=== PATIENT | female | born 1995 | race American Indian/Alaskan Native ===

== ENCOUNTER 2018-01-03 10:59 | Emergency (ER) | payer OTHER ==
[2018-01-03 11:35] LABS: Basophils % (Auto) 0.4 % (0.0-1.8); Eosinophils # (Auto) 0.2 K/mm3 (0.0-0.4); Eosinophils % (Auto) 2.1 % (0.0-4.3); Lymphocytes # (Auto) 2.1 K/mm3 (1.2-5.4); Lymphocytes % (Auto) 29.6 % (13.4-35.0); Mean Corpuscular HGB Conc 30 % (30-34); Monocytes # (Auto) 0.5 K/mm3 (0.0-0.8); Platelet Count 271 K/mm3 (140-440); Red Blood Count 5.88 M/mm3 (3.65-5.03)
[2018-01-03 11:37] LABS: Hematocrit 35.9 % (30.3-42.9); Mean Corpuscular Hemoglobin 18 pg (28-32); Mean Corpuscular Volume 61 fl (79-97); Red Cell Distribution Width 21.2 % (13.2-15.2)
[2018-01-03 11:38] LABS: Hemoglobin 10.8 gm/dl (10.1-14.3)
[2018-01-03 11:50] LABS: Alanine Aminotransferase 13 units/L (7-56); Albumin 4.1 g/dL (3.9-5); BUN/Creatinine Ratio 13; Blood Urea Nitrogen 9 mg/dL (7-17); Calcium 8.9 mg/dL (8.4-10.2); Hemolysis Index 2
[2018-01-03] MEDS ORDERED: ZOFRAN ODT PO ONE (12:56)
[2018-01-03] MEDS ORDERED: MOTRIN PO ONE (12:56)
--- NOTE | 2018-01-03 13:19 | Emergency Department Report ---
HPI - General Chief Complaint: Nausea/Vomiting/Diarrhea Time Seen by Provider: 01/03/18 12:34 ED Past Medical Hx - Past Medical History Previous Medical History?: Yes Hx Hypertension: Yes - Surgical History Past Surgical History?: No - Social History Smoking Status: Never Smoker Substance Use Type: Alcohol ED Review of Systems ROS: Stated complaint: N/V/D Other details as noted in HPI Constitutional: denies: fever Eyes: denies: vision change ENT: denies: throat pain Respiratory: denies: shortness of breath Cardiovascular: denies: chest pain Endocrine: denies: unexplained weight loss Gastrointestinal: denies: nausea, vomiting Genitourinary: denies: dysuria Musculoskeletal: back pain Skin: denies: rash Neurological: denies: headache, weakness, paresthesias Psychiatric: denies: depression Hematological/Lymphatic: denies: easy bleeding, easy bruising Physical Exam - Physical Exam Vital Signs: Vital Signs 01/03/18 11:03 Temperature 99 F Pulse Rate 91 H Respiratory 18 Rate Blood Pressure 155/101 O2 Sat by Pulse 96 Oximetry ED Course Vital Signs 01/03/18 11:03 Temperature 99 F Pulse Rate 91 H Respiratory 18 Rate Blood Pressure 155/101 O2 Sat by Pulse 96 Oximetry ED Medical Decision Making - Lab Data Result diagrams: 01/03/18 11:25 01/03/18 11:25 Critical care attestation.: If time is entered above; I have spent that time in minutes in the direct care of this critically ill patient, excluding procedure time. ED Disposition Condition: Stable Referrals: PRIMARY CARE, [Primary Care Provider] - 3-5 Days
--- NOTE | 2018-01-03 13:31 | Emergency Department Report ---
Chief Complaint: Nausea/Vomiting/Diarrhea Stated Complaint: N/V/D Time Seen by Provider: 01/03/18 12:34 - HPI History of Present Illness: The patient's 22-year-old female presents for evaluation of gastroenteritis- like symptoms. The patient reports 2 days of nausea, vomiting, loose watery stools, and intermittent cramping abdominal pain. The patient denies fever, chills, night sweats, hematemesis, chest pain, dyspnea, blood in the stool, dark tarry stool, dysuria, hematuria, flank pain, genital discharge, inability to pass flatus. - Exam Vital Signs: Vital Signs 01/03/18 11:03 Temperature 99 F Pulse Rate 91 H Respiratory 18 Rate Blood Pressure 155/101 O2 Sat by Pulse 96 Oximetry MSE screening note: Focused history and physical exam performed. Due to findings the following was ordered: ED Medical Decision Making - Lab Data Result diagrams: 01/03/18 11:25 01/03/18 11:25 ED Disposition for MSE Condition: Stable Referrals: PRIMARY CARE, [Primary Care Provider] - 3-5 Days
--- NOTE | 2018-01-03 13:34 | Emergency Department Report ---
Vomiting/Diarrhea - [facility] Chief Complaint: Nausea/Vomiting/Diarrhea Stated Complaint: N/V/D Time Seen by Provider: 01/03/18 12:34 Pain Severity: Mild Symptoms: Yes Watery Diarrhea, Yes Able to Tolerate Fluids, Yes Recent Unusual Foods (patient ate a lot of [place] takeout food 2 days ago), No Bloody diarrhea , No Fever, No Recent Untreated Water, No Recent use of Antibiotics, No Family w / Similar Symptoms, No Contacts w/ Similar Symptoms, No Rash, No Hematuria, No Recent URI Symptoms Other History: 22-year-old female past medical history obesity presents with complaint of intermittent nausea vomiting and loose watery stools for 2 days. Patient ED Review of Systems ROS: Stated complaint: N/V/D Other details as noted in HPI Constitutional: denies: chills, fever Eyes: denies: eye pain, eye discharge, vision change ENT: denies: ear pain, throat pain Respiratory: denies: shortness of breath, wheezing Cardiovascular: denies: chest pain, palpitations Endocrine: no symptoms reported Gastrointestinal: abdominal pain, nausea. denies: diarrhea Genitourinary: denies: urgency, dysuria, discharge Musculoskeletal: denies: back pain, joint swelling, arthralgia Skin: denies: rash, lesions Neurological: denies: headache, weakness, paresthesias Psychiatric: denies: anxiety, depression Hematological/Lymphatic: denies: easy bleeding, easy bruising ED Past Medical Hx - Past Medical History Previous Medical History?: Yes Hx Hypertension: Yes - Surgical History Past Surgical History?: No - Social History Smoking Status: Never Smoker Substance Use Type: Alcohol - Medications Home Medications: Home Medications Medication Instructions Recorded Confirmed Last Taken Type Bismuth Subsalicylate 15 mg PO QID PRN #1 bottle 01/03/18 Unknown Rx [Pepto-Bismol] Famotidine [Pepcid] 20 mg PO BID PRN #20 tablet 01/03/18 Unknown Rx Ondansetron [Zofran Odt] 4 mg PO Q8H PRN #9 tab.rapdis 01/03/18 Unknown Rx Vomiting Diarrhea Exam - Exam General: Vital signs noted. No distress. Alert and acting appropriately. HEENT: Yes Moist Mucous Membranes, No Pharyngeal Erythema, No Pharyngeal Exudates, No Rhinorrhea, No Conjuctival Injection, No Frontal Tenderness, No Maxillary Tenderness Neck: No Adenopathy, No Rigidity Lungs: Yes Clear Lung Sounds, Yes Good Air Exchange, No Wheezes, No Stridor, No Cough, No Nasal Flaring, No Retractions, No Use of Accessory Muscles Heart exam: Regular: Yes, Murmur: No, Tachycardia: No Abdomen: Tenderness: No, Peritoneal Signs: No, Distention: No, Hyperactive Bowel sounds: No Skin exam: Rash: No, Edema: No, Normal turgor: Yes Neurologic: Alert and oriented, no deficits. Musculoskeletal: Unremarkable. ED Course Vital Signs 01/03/18 11:03 Temperature 99 F Pulse Rate 91 H Respiratory 18 Rate Blood Pressure 155/101 O2 Sat by Pulse 96 Oximetry ED Medical Decision Making - Lab Data Result diagrams: 01/03/18 11:25 01/03/18 11:25 - Medical Decision Making A/P: Gastroenteritis, possible food poisoning 1-patient ate [place] takeout food which likely resulted in gastroenteritis. Patient has normal labs BMP CBC and LFTs. 2-patient states that her symptoms are slowly resolving. Is able to tolerate by mouth fluid and food without difficulty 3-vital signs stable for discharge, I discussed case with Dr. Daigle before discharge Critical care attestation.: If time is entered above; I have spent that time in minutes in the direct care of this critically ill patient, excluding procedure time. ED Disposition Clinical Impression: Gastroenteritis Nausea & vomiting Qualifiers: Vomiting type: unspecified Vomiting Intractability: non-intractable Qualified Code(s): R11.2 - Nausea with vomiting, unspecified Disposition: DC-01 TO HOME OR SELFCARE Is pt being admited?: No Does the pt Need Aspirin: No Condition: Stable Instructions: Gastroenteritis (ED), Acute Nausea and Vomiting (ED) Prescriptions: Bismuth Subsalicylate [Pepto-Bismol] 15 mg PO QID PRN #1 bottle PRN Reason: Indigestion Famotidine [Pepcid] 20 mg PO BID PRN #20 tablet PRN Reason: Indigestion Ondansetron [Zofran Odt] 4 mg PO Q8H PRN #9 tab.rapdis PRN Reason: Nausea Referrals: [facility] [Provider Group] - 3-5 Days Forms: Work/School Release Form(ED) Time of Disposition: 14:20
[2018-01-03 14:07] LABS: Bacteria,Urine 1+ /HPF (Negative); Bilirubin,Urine NEG (Negative); Blood,Urine NEG (Negative); Color,Urine Yellow (Yellow); Mucus,Urine FEW /HPF; Protein,Urine <15 mg/dL mg/dL (Negative); Urobilinogen,Urine < 2.0 mg/dL (<2.0)
[2018-01-03 14:09] LABS: HCG Qualitative,Urine Negative (Negative)
[2018-01-03 14:53] VITALS: BP 152/98
== END 2018-01-03 14:10 | disposition home or self-care (01) ==
LOC: ED 10:59
DX: K52.9 Noninfective gastroenteritis and colitis, unspecified (principal); R11.2 Nausea with vomiting, unspecified; I10 Essential (primary) hypertension
CPT/HCPCS: 36415; 80053; 81001; 81025; 85025; 99283; Q0162

== ENCOUNTER 2018-01-10 13:38 | Emergency (ER) | payer OTHER ==
[2018-01-10 14:09] VITALS: BP 156/85
--- NOTE | 2018-01-10 17:01 | Emergency Department Report ---
ED Rash HPI - [facility] Chief Complaint: Skin Rash Stated Complaint: BUG BITES Time Seen by Provider: 01/10/18 17:01 ED Review of Systems ROS: Stated complaint: BUG BITES Other details as noted in HPI ED Past Medical Hx - Past Medical History Hx Hypertension: Yes - Social History Smoking Status: Never Smoker Substance Use Type: None - Medications Home Medications: Home Medications Medication Instructions Recorded Confirmed Last Taken Type Bismuth Subsalicylate 15 mg PO QID PRN #1 bottle 01/03/18 Unknown Rx [Pepto-Bismol] Famotidine [Pepcid] 20 mg PO BID PRN #20 tablet 01/03/18 Unknown Rx Ondansetron [Zofran Odt] 4 mg PO Q8H PRN #9 tab.rapdis 01/03/18 Unknown Rx Rash Exam - Exam General: Vital signs noted. No distress. Alert and acting appropriately. ED Course Vital Signs 01/10/18 14:07 Temperature 98.5 F Pulse Rate 104 H Respiratory 18 Rate Blood Pressure 156/85 O2 Sat by Pulse 100 Oximetry Critical care attestation.: If time is entered above; I have spent that time in minutes in the direct care of this critically ill patient, excluding procedure time. ED Disposition Condition: Stable Referrals: LUZ MARIA ROBERTS MD [Primary Care Provider] - 3-5 Days
--- NOTE | 2018-01-10 17:15 | Emergency Department Report ---
ED Rash HPI - HPI Chief Complaint: Skin Rash Stated Complaint: BUG BITES Time Seen by Provider: 01/10/18 17:01 Duration: 2 Days Location: Other (patient noticed when she woke up yesterday that she has several small areas of induration with pain and itching on her right lower quadrant and the abdomen as well as the left neck and right upper extremity. None of these are greater than 3 cm in width) Rash Symptoms: Yes Itching, No Facial Swelling, No Tongue/Oral Swelling, No Breathing Difficulties, No Choking Sensation, No Wheezing/Dyspnea, No Peeling, No Blistering, No Fever, No Lightheaded, No Malaise, No Myalgias Severity: moderate ED Review of Systems ROS: Stated complaint: BUG BITES Other details as noted in HPI Comment: All other systems reviewed and negative ED Past Medical Hx - Past Medical History Hx Hypertension: Yes - Social History Smoking Status: Never Smoker Substance Use Type: None - Medications Home Medications: Home Medications Medication Instructions Recorded Confirmed Last Taken Type Bismuth Subsalicylate 15 mg PO QID PRN #1 bottle 01/03/18 Unknown Rx [Pepto-Bismol] Famotidine [Pepcid] 20 mg PO BID PRN #20 tablet 01/03/18 Unknown Rx Ondansetron [Zofran Odt] 4 mg PO Q8H PRN #9 tab.rapdis 01/03/18 Unknown Rx Sulfamethoxazole/Trimethoprim 1 each PO BID #14 tablet 01/10/18 Unknown Rx [Bactrim DS TAB] traMADol [Ultram] 50 mg PO Q6HR PRN #14 tablet 01/10/18 Unknown Rx Rash Exam - Exam General: Vital signs noted. No distress. Alert and acting appropriately. HEENT: No Periorbital Edema, No Conjuctival Injection, No Chemosis, No Perioral Edema, No Tongue Edema, No Uvular Edema, No Compromised Airway, No Drooling Lungs: Yes Good Air Exchange (Normal Breath Sounds), No Wheezes, No Ronchi, No Stridor, No Cough, No Labored Respirations, No Retractions, No Use of Accessory Muscles, No Other Abnormal Lung Sounds Heart: Yes Regular, No Murmur Skin: Yes Erythema (patient has sinus several areas of induration and mild warmth with no fluctuance in the right lower quadrant abdomen and left neck and right upper extremity) Other: Positive: Abdomen Normal, Neurologic Normal, Musculoskeletal Normal ED Course Vital Signs 01/10/18 14:07 Temperature 98.5 F Pulse Rate 104 H Respiratory 18 Rate Blood Pressure 156/85 O2 Sat by Pulse 100 Oximetry ED Medical Decision Making - Medical Decision Making Patient's lesions are most consistent with bug bites that are infected with mild cellulitis. Patient states she does not see anybody bedbugs in her bed. This is not an old mattress. Denies a suspect scabies. The patient be discharged on antibiotics. Critical care attestation.: If time is entered above; I have spent that time in minutes in the direct care of this critically ill patient, excluding procedure time. ED Disposition Clinical Impression: Cellulitis Disposition: DC-01 TO HOME OR SELFCARE Is pt being admited?: No Does the pt Need Aspirin: No Condition: Stable Instructions: Cellulitis (ED) Prescriptions: Sulfamethoxazole/Trimethoprim [Bactrim DS TAB] 1 each PO BID #14 tablet traMADol [Ultram] 50 mg PO Q6HR PRN #14 tablet PRN Reason: Pain Referrals: LUZ MARIA ROBERTS MD [Primary Care Provider] - 3-5 Days
== END 2018-01-10 17:47 | disposition home or self-care (01) ==
LOC: ED 13:38
DX: L03.221 Cellulitis of neck (principal); L03.311 Cellulitis of abdominal wall; L03.113 Cellulitis of right upper limb; I10 Essential (primary) hypertension
CPT/HCPCS: 99282

== ENCOUNTER 2018-11-19 12:53 | Emergency (ER) | payer SELFPAY ==
[2018-11-19 13:13] VITALS: BP 136/84
--- NOTE | 2018-11-19 15:12 | Emergency Department Report ---
ED Abdominal Pain HPI - General Chief Complaint: Abdominal Pain Stated Complaint: STOMACH CRAMPS/MISSED CYCLE Time Seen by Provider: 11/19/18 14:25 Source: patient Mode of arrival: Ambulatory Limitations: No Limitations - History of Present Illness Initial Comments: This is a 23-year-old female here report that her last menstrual period was 09/29/2018 and she had a negative home test and 4. She says she has lower abdominal cramping on and off. Denies any nausea or vomiting. Denies any vaginal bleeding or discharge. Denies any fever or chills. Denies any urinary burning frequency or urgency. She said her pain this morning was 5 out of 10 and she decided to come in but now she is not having any pain. She denies any concern for STDs. Patient is more worried that she missed her period and thinks she might be . MD Complaint: abdominal pain -: This morning Location: suprapubic Radiation: none Migration to: no migration Severity scale (0 -10): 5 Quality: cramping (this morning but no pain now.) Consistency: intermittent Context: other (suspect ) Associated Symptoms: denies: nausea, vomiting, diarrhea, fever, chills, constipation, dysuria, melena, hematuria Treatments Prior to Arrival: other (none) - Related Data LMP Date: 09/29/18 Previous Rx's Medication Instructions Recorded Last Taken Type Bismuth Subsalicylate 15 mg PO QID PRN #1 bottle 01/03/18 Unknown Rx [Pepto-Bismol] Famotidine [Pepcid] 20 mg PO BID PRN #20 tablet 01/03/18 Unknown Rx Ondansetron [Zofran Odt] 4 mg PO Q8H PRN #9 tab.rapdis 01/03/18 Unknown Rx Sulfamethoxazole/Trimethoprim 1 each PO BID #14 tablet 01/10/18 Unknown Rx [Bactrim DS TAB] traMADol [Ultram] 50 mg PO Q6HR PRN #14 tablet 01/10/18 Unknown Rx Allergies Allergy/AdvReac Type Severity Reaction Status Date / Time No Known Allergies Allergy Unverified 01/03/18 11:11 ED Review of Systems ROS: Stated complaint: STOMACH CRAMPS/MISSED CYCLE Other details as noted in HPI Constitutional: denies: chills, fever ENT: denies: throat pain Respiratory: denies: cough, shortness of breath, wheezing Cardiovascular: denies: chest pain, palpitations, edema, syncope Gastrointestinal: denies: abdominal pain, nausea, vomiting, diarrhea, constipation, hematemesis, melena, hematochezia Genitourinary: abnormal menses. denies: urgency, dysuria, frequency, hematuria, discharge, dyspareunia Musculoskeletal: denies: back pain, arthralgia Neurological: denies: headache, abnormal gait, vertigo ED Past Medical Hx - Past Medical History Previous Medical History?: Yes Hx Hypertension: Yes - Surgical History Past Surgical History?: No - Family History Family history: hypertension - Social History Smoking Status: Never Smoker Substance Use Type: Alcohol - Medications Home Medications: Home Medications Medication Instructions Recorded Confirmed Last Taken Type Bismuth Subsalicylate 15 mg PO QID PRN #1 bottle 01/03/18 Unknown Rx [Pepto-Bismol] Famotidine [Pepcid] 20 mg PO BID PRN #20 tablet 01/03/18 Unknown Rx Ondansetron [Zofran Odt] 4 mg PO Q8H PRN #9 tab.rapdis 01/03/18 Unknown Rx Sulfamethoxazole/Trimethoprim 1 each PO BID #14 tablet 01/10/18 Unknown Rx [Bactrim DS TAB] traMADol [Ultram] 50 mg PO Q6HR PRN #14 tablet 01/10/18 Unknown Rx ED Physical Exam - General Limitations: No Limitations General appearance: alert, in no apparent distress - Eye Eye exam: Present: normal appearance, PERRL, EOMI Pupils: Present: normal accommodation - ENT ENT exam: Present: normal exam, normal orophraynx, mucous membranes moist - Neck Neck exam: Present: normal inspection, full ROM. Absent: tenderness, lymphadenopathy - Respiratory Respiratory exam: Present: normal lung sounds bilaterally. Absent: respiratory distress, chest wall tenderness - Cardiovascular Cardiovascular Exam: Present: regular rate, normal rhythm, normal heart sounds - GI/Abdominal GI/Abdominal exam: Present: soft, normal bowel sounds. Absent: distended, tenderness, guarding, rebound, rigid, organomegaly, mass - Extremities Exam Extremities exam: Present: normal inspection, full ROM, normal capillary refill, other (No cce. + 2 pulses in all extremities, no neurovascular compromise). Absent: tenderness, pedal edema, joint swelling, calf tenderness - Back Exam Back exam: Present: normal inspection, full ROM, other (ambulates without any difficulties). Absent: CVA tenderness (R), CVA tenderness (L), muscle spasm - Neurological Exam Neurological exam: Present: alert, oriented X3, normal gait - Psychiatric Psychiatric exam: Present: normal affect, normal mood - Skin Skin exam: Present: warm, dry, intact, normal color. Absent: rash ED Course Vital Signs 11/19/18 13:10 Temperature 98.9 F Pulse Rate 92 H Respiratory 16 Rate Blood Pressure 136/84 O2 Sat by Pulse 100 Oximetry - Reevaluation(s) Reevaluation #1: 11/19/18 15:56 Patient remained pain-free throughout ED course without any episode of abdominal pain. ED Medical Decision Making - Lab Data Lab Results 11/19/18 Range/Units 15:14 Urine Color Yellow (Yellow) Urine Turbidity Clear (Clear) Urine pH 7.0 (5.0-7.0) Ur Specific [place] 1.017 (1.003-1.030) Urine Protein <15 mg/dl (Negative) mg/dL Urine Glucose (UA) Neg (Negative) mg/dL Urine Ketones Neg (Negative) mg/dL Urine Blood Neg (Negative) Urine Nitrite Neg (Negative) Urine Bilirubin Neg (Negative) Urine Urobilinogen 2.0 (<2.0) mg/dL Ur Leukocyte Esterase Neg (Negative) Urine WBC (Auto) < 1.0 (0.0-6.0) /HPF Urine RBC (Auto) 2.0 (0.0-6.0) /HPF U Epithel Cells (Auto) 5.0 (0-13.0) /HPF Urine Mucus 1+ /HPF Urine HCG, Qual Negative (Negative) - Medical Decision Making This is a 23-year-old female here reports that she took 4 tests at home and were negative but she missed her cycle for October. Patient is reporting that she thinks she is and she started having some abdominal cramping which has resolved since she has been emergency room. Physical findings for normal abdominal and back exam. Her urinalysis negative for infection and her test is negative. I discussed the patient's her examination and I discussed with her she is to follow up with [employer] regarding irregular menstrual cycle. She voiced understanding and discharged home in stable condition Critical care attestation.: If time is entered above; I have spent that time in minutes in the direct care of this critically ill patient, excluding procedure time. ED Disposition Clinical Impression: Urine test negative Oligomenorrhea, unspecified Qualifiers: Oligomenorrhea type: unspecified type Qualified Code(s): N91.5 - Oligomenorrhea, unspecified Disposition: DC- TO HOME OR SELFCARE Is pt being admited?: No Does the pt Need Aspirin: No Condition: Stable Instructions: Safe Sex (ED), Pap Smear (ED) Additional Instructions: Please follow up with [employer] in the surgeon instruction paperwork in 2-3 days to manage abnormal menstrual cycle. If her condition worsens, return to the emergency room otherwise follow-up with [employer] Referrals: GILBERTO GOFF [Staff Physician] - 2-3 Days PRIMARY CARE, [Primary Care Provider] - 2-3 Days Forms: Work/School Release Form(ED)
[2018-11-19 15:39] LABS: Bilirubin,Urine NEG (Negative); Blood,Urine NEG (Negative); Color,Urine Yellow (Yellow); Mucus,Urine 1+ /HPF; Protein,Urine <15 mg/dL mg/dL (Negative); WBC,Urine < 1.0 /HPF (0.0-6.0)
[2018-11-19 15:43] LABS: HCG Qualitative,Urine Negative (Negative)
== END 2018-11-19 16:13 | disposition home or self-care (01) ==
LOC: ED 12:53
DX: N91.5 Oligomenorrhea, unspecified (principal); I10 Essential (primary) hypertension
CPT/HCPCS: 81001; 81025

== ENCOUNTER 2019-09-24 11:12 | Emergency (ER) | payer OTHER ==
[2019-09-24 11:21] VITALS: BP 146/76
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
[2019-09-24] MEDS ORDERED: IBUPROFEN 600 MG TAB PO ONE (15:12)
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
== END 2019-09-24 16:16 | disposition home or self-care (01) ==
LOC: ED 11:12
DX: S39.012A Strain of muscle, fascia and tendon of lower back, initial encounter (principal); I10 Essential (primary) hypertension; V49.49XA Driver injured in collision with other motor vehicles in traffic accident, initial encounter; Y93.89 Activity, other specified; Y92.410 Unspecified street and highway as the place of occurrence of the external cause; Y99.8 Other external cause status
CPT/HCPCS: 72100

== ENCOUNTER 2020-09-24 10:14 | Outpatient (CLI) | payer OTHER, MEDICAID ==
[2020-09-24 12:08] LABS: Hematocrit 31.1 % (30.3-42.9); Hemoglobin 10.4 gm/dl (10.1-14.3); Mean Corpuscular HGB Conc 33 % (30-34); Mean Corpuscular Volume 71 fl (79-97); Platelet Count 193 K/mm3 (140-440); Red Blood Count 4.36 M/mm3 (3.65-5.03); Red Cell Distribution Width 18.8 % (13.2-15.2)
[2020-09-24 12:11] LABS: Bilirubin,Urine NEG (Negative); Blood,Urine NEG (Negative); Color,Urine Yellow (Yellow); Mucus,Urine 1+ /HPF; Protein,Urine <15 mg/dL mg/dL (Negative); Urobilinogen,Urine < 2.0 mg/dL (<2.0)
[2020-09-24 12:54] LABS: Alanine Aminotransferase 9 units/L (7-56); Uric Acid 4.7 mg/dL (3.5-7.6)
[2020-09-24 12:56] VITALS: BP 135/73
== END 2020-09-24 13:13 | disposition home or self-care (01) ==
LOC: TRG 10:14 → APU 10:19 → TRG 13:13
PROVIDERS: ATTEND Obstetrics & Gynecology
DX: O13.3 Gestational [pregnancy-induced] hypertension without significant proteinuria, third trimester (principal); Z3A.37 37 weeks gestation of pregnancy
CPT/HCPCS: 36415; 59025; 81001; 82565; 83615; 84450; 84460; 84550; 85027

== ENCOUNTER 2020-09-28 06:48 | Inpatient (IN) | payer OTHER, MEDICAID ==
[2020-09-28] MEDS ORDERED: LACTATED RINGERS 1,000 ML ONE ×2 (12:45→14:25)
--- NOTE | 2020-09-28 13:14 | History and Physical Report ---
History of Present Illness Date of examination: 09/28/20 Date of admission: 09/28/2020 Chief complaint: I am having contractions History of present illness: Patient is a 24-year-old 2 para 0 who presents with contractions at 38 weeks gestation. Past History Past Medical History: no pertinent history Past Surgical History: no surgical history Family/Genetic History: none Social history: no significant social history - Obstetrical History Expected Date of Delivery: 10/12/20 Actual Gestation: 38 Week(s) 0 Day(s) : 2 Para: 0 Medications and Allergies Allergies Allergy/AdvReac Type Severity Reaction Status Date / Time No Known Allergies Allergy Verified 09/28/20 12:56 Home Medications Medication Instructions Recorded Confirmed Last Taken Type Bismuth Subsalicylate 15 mg PO QID PRN #1 bottle 01/03/18 Unknown Rx [Pepto-Bismol] Famotidine [Pepcid] 20 mg PO BID PRN #20 tablet 01/03/18 Unknown Rx Ondansetron [Zofran Odt] 4 mg PO Q8H PRN #9 tab.rapdis 01/03/18 Unknown Rx Sulfamethoxazole/Trimethoprim 1 each PO BID #14 tablet 01/10/18 Unknown Rx [Bactrim DS TAB] traMADoL [Ultram] 50 mg PO Q6HR PRN #14 tablet 01/10/18 Unknown Rx Cyclobenzaprine HCl [Flexeril 5 MG 5 mg PO QHS PRN #10 tab 09/24/19 Unknown Rx TAB] Ibuprofen [Motrin 600 MG tab] 600 mg PO Q8H PRN #20 tablet 09/24/19 Unknown Rx Review of Systems All systems: negative Constitutional: fatigue Eyes: deferred Ears, nose, mouth and throat: deferred Breasts: deferred Genitourinary: leakage of fluid, contractions - Vital Signs Vital signs: Vital Signs Pulse BP Pulse Ox 85 147/65 100 09/28/20 07:27 09/28/20 07:27 09/28/20 07:27 Temp Pulse Resp BP Pulse Ox 98.4 F 94 H 18 166/83 100 09/28/20 12:54 09/28/20 12:54 09/28/20 12:54 09/28/20 12:54 09/28/20 12:54 - Physical Exam Cardiovascular: Regular rate, Normal S1, Normal S2 Lungs: Positive: Clear to auscultation, Normal air movement Abdomen: Positive: normal appearance, soft, normal bowel sounds Genitourinary (Female): Positive: normal external genitalia, normal perenium Vagina: Positive: normal moisture Uterus: Positive: normal size Extremities: Positive: normal - Obstetrical Cervical Dilatation: 6 Cervical Effacement Percentage: 100 station: -1 Uterine Contraction Pattern: Regular Uterine Tone Measurement Phase: Contraction Uterine Contraction Intensity: Moderate Results Result Diagrams: 09/28/20 12:20 All other labs normal. Assessment and Plan IUP at 38 weeks here in active labor. Admit for labor. AROm when able. Anticipate .
[2020-09-28] MEDS ORDERED: ePHEDrine SULFATE 50 MG/1 ML INJ ONE (14:21)
[2020-09-28] MEDS ORDERED: ePHEDrine SULFATE 50 MG/1 ML INJ IV PRN (14:34)
[2020-09-28] MEDS ORDERED: NALOXONE 2 MG/2 ML INJ IV PRN (14:34)
--- NOTE | 2020-09-28 14:34 | Anesthesia Consultation ---
Anesthesia Consult and Med Hx Date of service: 09/28/20 - Airway Anesthetic Teeth Evaluation: Good ROM Head & Neck: Adequate Mental/Hyoid Distance: Adequate Mallampati Class: Class II Intubation Access Assessment: Probably Good - Pulmonary Exam CTA: Yes - Cardiac Exam Cardiac Exam: RRR - Pre-Operative Health Status ASA Pre-Surgery Classification: ASA3 Proposed Anesthetic Plan: Epidural - Pulmonary Hx Asthma: Yes (has not used inhaler in years) - Cardiovascular System Hx Hypertension: Yes - Central Nervous System Hx Seizures: No Hx Psychiatric Problems: No - Endocrine Hx Renal Disease: No Hx Hypothyroidism: No Hx Hyperthyroidism: No - Hematic Hx Anemia: No Hx Sickle Cell Disease: No - Other Systems Hx Alcohol Use: Yes (social)
[2020-09-28] MEDS ORDERED: BUTORPHANOL 2 MG/1 ML INJ IV PRN (14:38)
[2020-09-28 14:48] LABS: Hematocrit 34.8 % (30.3-42.9); Hemoglobin 11.1 gm/dl (10.1-14.3); Mean Corpuscular HGB Conc 32 % (30-34); Mean Corpuscular Volume 73 fl (79-97); Platelet Count 201 K/mm3 (140-440); Red Blood Count 4.79 M/mm3 (3.65-5.03); Red Cell Distribution Width 18.7 % (13.2-15.2)
[2020-09-28] MEDS ORDERED: fentaNYL-BUPIV 2 MCG/ML-0.125% 200 MCG/100 ML BAG EPIDURAL SCH (15:00)
--- NOTE | 2020-09-28 15:45 | Progress Note ---
Labor Epidural - Labor Epidural Start Time: 15:29 Stop Time: 15:38 Performed by:: ROB ESPINOZA Procedure: Patient is requesting epidural for labor pain. H&P, and labs reviewed. Procedure explained, questions answered, consent obtained. Patient in sitting position with blood pressure cuff and pulse ox on and working. Timeout performed immediately before start of procedure. Sterile betadine prep/drape. 3 mL 1% lidocaine skin wheal at L[3]-L[4]. 18-gauge RubyRidetead epidural needle advanced to [id number] with saline at 10 cm. Epidural dexmedetomidine [30] mcg administered. Epidural catheter advanced to 15 cm, negative aspiration for blood and csf, negative test dose 3 ml 1.5% lidocaine with epinephrine. Sterile steri-strips and tegaderm applied, followed by tape reinforcement. Patient tolerated procedure well. Jacqueline WANG
[2020-09-28] MEDS ORDERED: MINERAL OIL 30 ML ORAL LIQD ONE (17:25)
[2020-09-28] MEDS ORDERED: LIDOCAINE (2%) 20 MG/1 ML VIAL 20 ML MDV INFILTRATI ONE (17:25)
[2020-09-28] MEDS ORDERED: OXYTOCIN DRIP 30,000 MILLIUNITS/500 ML BAG IV ONE ×2 (17:26→18:09)
[2020-09-28] MEDS ORDERED: FAMOTIDINE 20 MG/2 ML INJ IV ONE (18:30)
--- NOTE | 2020-09-28 20:07 | Procedure Note ---
OB Delivery Note - Delivery Date of Delivery: 09/28/20 Deputy General Counsel: SAGE CARSON (Netta Enrique [facility]) Estimated blood loss: other (150) - Vaginal Delivery presentation: vertex Delivery position: OP (direct OP) Intrapartum events: none Delivery induction: none Delivery augmentation: rupture of membranes, pitocin Delivery monitor: external FHT, external uterine Route of delivery: Delivery placenta: spontaneous (trailing membranes) Episiotomy: none Delivery laceration: none Anesthesia: epidural Delivery comments: female baby born over intact perineum, placed skin to skin on mother's abdomen. 3 vessel cord clamped and cut after cessation or pulsation. cord blood collected. Placenta del intact and complete, trailing membranes noted and teased out with ring forceps. Fundus firm, lochia scant, no laceration to repair. EBL 150, apgars 8/9, baby's wt 6#11oz. All counts correct. Mother and baby LDR stable. - Infant A at 1 minute: 8 at 5 minutes: 9 Gender: Female (Sosa, 6#11oz)
[2020-09-28] MEDS ORDERED: LANOLIN/ZINC/DIMETHICONE (LANSINOH) 7 GM TP PRN (23:18)
[2020-09-28] MEDS ORDERED: PROMETHAZINE 25 MG RECT SUPP PR PRN (23:18)
[2020-09-28] MEDS ORDERED: ONDANSETRON 4 MG/2 ML INJ IV PRN (23:18)
[2020-09-28] MEDS ORDERED: PROMETHAZINE 25 MG TAB PO PRN (23:18)
[2020-09-28] MEDS ORDERED: MAGNESIUM HYDROXIDE (MOM) ORAL LIQD UDC PO PRN (23:18)
[2020-09-28] MEDS ORDERED: WITCH HAZEL/ GLYCERIN PAD TP PRN (23:18)
[2020-09-28] MEDS ORDERED: BENZOCAINE/MENTHOL 20/0.5% TOP SPRAY 56 GM TP PRN (23:18)
[2020-09-28] MEDS ORDERED: diphenhydrAMINE 25 MG CAP PO PRN (23:18)
[2020-09-29] MEDS: PRENATAL VIT27-FE FUMARATE-FOLIC ACID VIT TAB PO SCH (10:01)
[2020-09-29] MEDS: IBUPROFEN 600 MG TAB PO SCH ×2 (10:01→16:12)
--- NOTE | 2020-09-29 10:05 | Progress Note ---
Assessment and Plan PPD 1 s/p . Doing well. Pt delivered at 2030pm and will be 24 hours post delivery at that time. Pt should plan for discharge on [place] AM Subjective - Subjective Date of service: 09/29/20 Interval history: PPD 1 s/p at term. Pt has no complaints. Patient reports: appetite normal, voiding normally, pain well controlled, flatus, ambulating normally [place]: doing well Objective - Vital Signs Latest vital signs: Vital Signs Temp Pulse Resp BP BP Pulse Ox 09/29/20 07:53 97.9 F 90 18 136/73 99 09/29/20 07:05 98.3 F 96 H 18 136/73 99 09/29/20 01:55 98.5 F 85 20 131/61 99 09/28/20 22:44 99.5 F 88 20 145/74 100 09/28/20 21:15 98.1 F 16 09/28/20 20:22 88 115/60 09/28/20 20:08 97 H 100 09/28/20 20:07 94 H 129/68 09/28/20 20:03 97 H 100 20 19:58 96 H 100 09/28/20 19:53 102 H 100 09/28/20 19:48 116 H 100 09/28/20 19:43 104 H 100 20 19:39 122 H 185/112 09/28/20 19:38 87 99 09/28/20 19:37 77 82 L 09/28/20 19:33 121 H 83 L 09/28/20 19:28 110 H 100 09/28/20 19:23 96 H 139/70 100 09/28/20 19:18 94 H 100 20 19:13 88 100 20 19:09 87 139/65 20 19:08 88 100 09/28/20 19:03 83 100 20 18:58 84 100 20 18:53 102 H 125/65 100 20 18:48 106 H 100 20 18:43 86 155/77 100 20 18:38 90 99 09/28/20 18:33 88 100 09/28/20 18:28 87 100 09/28/20 18:23 87 131/74 100 12/19/20 18:18 88 100 1219/20 18:15 18 12/19/20 18:13 88 100 1219/20 18:08 88 100 19/20 18:07 85 137/76 09/28/20 18:03 84 100 1219/20 17:58 87 100 19/20 17:53 88 100 1219/20 17:51 85 129/77 1219/20 17:48 87 100 19/20 17:43 93 H 100 19/20 17:40 86 157/70 1219/20 17:38 84 99 19/20 17:33 78 99 19/20 17:30 85 150/68 19/20 17:28 76 100 19/20 17:23 77 100 09/28/20 17:21 81 147/67 09/28/20 17:18 95 H 99 19/20 17:13 85 100 19/20 17:10 83 137/66 09/28/20 17:08 84 100 09/28/20 17:03 85 99 19/20 17:00 81 137/68 09/28/20 16:58 86 100 19/20 16:53 89 99 19/20 16:50 89 145/68 19/20 16:48 87 100 09/28/20 16:43 87 100 19/20 16:41 83 144/70 19/20 16:38 82 100 19/20 16:34 98.1 F 20 09/28/20 16:33 85 100 19/20 16:30 86 140/65 1219/20 16:28 90 99 19/20 16:23 100 H 98 19/20 16:20 85 144/72 19/20 16:18 93 H 100 19/20 16:13 88 99 19/20 16:08 96 H 99 19/20 16:06 99 H 155/68 19/20 16:03 91 H 99 19/20 16:02 87 136/62 1219/20 15:58 97 H 99 19/20 15:56 97 H 145/67 19/20 15:53 86 99 12/19/20 15:49 90 136/65 09/28/20 15:48 93 H 100 09/28/20 15:47 98 H 131/64 09/28/20 15:45 97 H 134/63 09/28/20 15:43 100 H 151/66 99 09/28/20 15:41 107 H 149/78 09/28/20 15:39 93 H 144/79 09/28/20 15:38 100 09/28/20 14:52 88 148/77 09/28/20 14:29 90 169/79 09/28/20 14:24 92 H 166/84 09/28/20 13:52 91 H 145/85 09/28/20 12:54 98.4 F 94 H 18 166/83 100 09/28/20 10:25 83 80 L 09/28/20 10:18 61 80 L 09/28/20 10:13 86 98 09/28/20 10:08 82 100 Intake and Output 09/28/20 09/29/20 09/29/20 22:59 06:59 14:59 Intake Total 420 Output Total 300 400 Balance -300 20 Intake: Intake, Free Water 420 Output: Urine 300 400 Indwelling Catheter 300 Void 400 Other: Total, Output Amount 300 400 # Voids Void 1 Estimated Blood Loss 150 - Exam Breasts: Present: deferred Cardiovascular: Present: Regular rate, Normal S1, Normal S2 Lungs: Present: Clear to auscultation, Normal air movement Abdomen: Present: normal appearance, soft, normal bowel sounds Vulva: both: normal Uterus: Present: normal, firm Extremities: Present: normal - Labs Labs: Abnormal lab results 09/28/20 Range/Units 12:20 WBC 13.4 H (4.5-11.0) K/mm3 MCV 73 L (79-97) fl MCH 23 L (28-32) pg RDW 18.7 H (13.2-15.2) %
--- NOTE | 2020-09-29 10:52 | Post Anesthesia Evaluation ---
- Post Anesthesia Evaluation Patient Participated: Yes Airway Patent: Yes Stable Respiratory Function: Yes Nausea/Vomiting: No Temp > 96.8F: Yes Pain Manageable: Yes Adequeate Hydration: Yes Anesthesia Complications: No Block Receding Appropriately: Yes
[2020-09-29 14:31] LABS: Hematocrit 31.1 % (30.3-42.9); Hemoglobin 9.9 gm/dl (10.1-14.3)
[2020-09-30] MEDS: IBUPROFEN 600 MG TAB PO SCH ×2 (05:51→09:53)
[2020-09-30] MEDS ORDERED: DIPHtheria,PERTUSSIS(ACELL),TETANUS VACCINE/PF 0.5 ML VIAL IM ONE (06:00)
--- NOTE | 2020-09-30 08:19 | Discharge Summary ---
Providers - Providers Date of Admission: 09/28/20 20:36 Date of discharge: 09/30/20 Attending physician: DELMIS RASMUSSEN 09/28/20 23:18 Consult to [employer] [CONS] Routine Reason For Exam: assistance with , SNS Primary care physician: DELMIS ARSMUSSEN Hospitalization Reason for admission: active labor Procedure details: Please see delivery note. Episiotomy: none Laceration: none Other procedures: none complications: none Discharge diagnosis: IUP at term delivered baby: female Hospital course: Pt was admitted in labor and underwent vaginal delivery which she tolerated well. She developed gestational hypertension during her hospitalization. She met discharge criteria on PPD#2 and will follow up in 1 week for a BP check and PIH labs. Condition at discharge: Stable Disposition: DC-01 TO HOME OR SELFCARE - Discharge Diagnoses (1) Term of female Status: Acute (2) Morbid obesity Status: Acute (3) Anemia Status: Acute Qualifiers: Anemia type: unspecified type Qualified Code(s): D64.9 - Anemia, unspecified (4) Gestational hypertension Status: Acute Qualifiers: Trimester: third trimester Qualified Code(s): O13.3 - Gestational [-induced] hypertension without significant proteinuria, third trimester Plan - Discharge Medications Prescriptions: Docusate Sodium [Colace] 100 mg PO BID PRN #60 capsule PRN Reason: Constipation Ferrous Sulfate [Feosol 325 MG tab] 325 mg PO BID #60 tablet Ibuprofen [Motrin] 800 mg PO Q8HR PRN #30 tablet PRN Reason: Pain, Moderate (4-6) HYDROcodone/APAP 5-325 [[place] 5/325] 1 each PO Q6HR PRN #20 tablet PRN Reason: Pain - Provider Discharge Summary Activity: routine, no sex for 6 weeks, no heavy lifting 4 weeks, no strenuous exercise Diet: routine Instructions: routine Additional instructions: [] Smoking cessation referral if applicable(refer to patient education folder for contact #) [] Refer to [facility] Booklet Call your doctor immediately for: * Fever > 100.5 * Heavy vaginal bleeding ( >1 pad per hour) * Severe persistent headache * Shortness of breath * Reddened, hot, painful area to leg or breast * Drainage or odor from incision. * Keep incision clean and dry at all times and follow doctor's instructions regarding bathing/showering - Follow up plan Follow up: MAT GRAHAM CNM [Advanced Practice Nurse] - 7 Days (Please call to schedule a blood pressure check )
--- NOTE | 2020-09-30 08:19 | Progress Note ---
Assessment and Plan A: PPD#2 s/p at term Gestational Hypertension Morbid Obesity P: Routine care Follow up in 1 week for BP check Subjective - Subjective Date of service: 09/30/20 Principal diagnosis: s/p at term; Gestational Hypertension; Morbid Obesity Interval history: Pt without complaints. Patient reports: appetite normal, voiding normally, pain well controlled, ambulating normally [place]: doing well Objective - Vital Signs Latest vital signs: Vital Signs Temp Pulse Resp BP BP Pulse Ox 09/30/20 01:20 98.0 F 81 20 124/60 99 09/29/20 16:03 98.2 F 84 18 111/50 98 09/29/20 12:33 97.9 F 90 18 135/79 98 Intake and Output 09/29/20 09/30/20 09/30/20 22:59 06:59 14:59 Intake Total 240 240 Balance 240 240 Intake: Oral 240 240 Other: Total, Intake Amount 240 240 # Voids Void 1 1 - Exam Breasts: Present: deferred Abdomen: Present: soft (obese ) Uterus: Present: fundal height at umbilicus Extremities: Present: edema (trace ) - Labs Labs: Abnormal lab results 09/29/20 Range/Units 13:51 Hgb 9.9 L (10.1-14.3) gm/dl
[2020-09-30] MEDS: PRENATAL VIT27-FE FUMARATE-FOLIC ACID VIT TAB PO SCH (09:53)
[2020-09-30 12:50] VITALS: BP 137/73
== END 2020-09-30 13:15 | disposition home or self-care (01) | DRG 807 ==
LOC: TRG 06:48 → APU 06:49 → LD 12:52 → TRG 20:34 → LD 20:36 → OB 22:50
PROVIDERS: ADMIT Obstetrics & Gynecology; ATTEND Obstetrics & Gynecology
PROC: 10E0XZZ Delivery of Products of Conception, External Approach (ICD-10-PCS; principal; 2020-09-28)
PROC: 3E0R3BZ Introduction of Anesthetic Agent into Spinal Canal, Percutaneous Approach (ICD-10-PCS; 2020-09-28)
PROC: 00HU33Z Insertion of Infusion Device into Spinal Canal, Percutaneous Approach (ICD-10-PCS; 2020-09-28)
PROC: 10907ZC Drainage of Amniotic Fluid, Therapeutic from Products of Conception, Via Natural or Artificial Opening (ICD-10-PCS; 2020-09-28)
PROC: 3E0234Z Introduction of Serum, Toxoid and Vaccine into Muscle, Percutaneous Approach (ICD-10-PCS; 2020-09-30)
DX: O13.4 Gestational [pregnancy-induced] hypertension without significant proteinuria, complicating childbirth (principal); Z37.0 Single live birth; O99.02 Anemia complicating childbirth; D64.9 Anemia, unspecified; Z20.828 Contact with and (suspected) exposure to other viral communicable diseases; O99.214 Obesity complicating childbirth; E66.01 Morbid (severe) obesity due to excess calories; Z3A.38 38 weeks gestation of pregnancy; Z23 Encounter for immunization
CPT/HCPCS: 36415; 59025; 85014; 85018; 85027; 86592; 86850; 86900; 86901; 96360; 96361; 96365; 96366; 96374; G0378; J0595; J2590; J7120; U0003